=== PATIENT | female | born 1990 | race Caucasian/White ===

== ENCOUNTER 2019-06-20 15:30 | Outpatient (CLI) | payer MEDICAID, SELFPAY ==
--- NOTE | 2019-06-20 | US_ITS ---
WS: [id number] OBSTETRICAL ULTRASOUND COMPLETE HISTORY: SUPERVISION OF NORMAL FIRST COMPARISON: 04/11/2018 Single intrauterine gestation in breech presentation. Cervix is Closed and normal length. Cervical length is 3.7 cm. Normal amount of amniotic fluid surrounds the fetus. Placenta: Anterior, no previa or abruption. Placenta grade 1 Heart: 137 BPM. Four chambers are identified. Anatomy: Poorly visualized distal spine. Intracranial structures are normal. kidneys, stomach a nd urinary bladder are unremarkable. Abdominal wall, three-vessel cord and cord insertion site are no rmal. 4 extremities are present. profile: Unremarkable. Gender: Female. measurements: BPD = 4.7 cm = 20w1d HC = 17.3 cm = 19w6d AC = 15.7 cm = 20w6d FL = 3.2 cm = 20w0d EFW: 352 g., Measurements are internally concordant. AGA by ultrasound: 20 weeks 2 days ALEJANDRO by ultrasound: 11/05/2019 US/US OB >= 14 weeks fetus [id number] IMPRESSION: 1. Single intrauterine gestation of 20 weeks 2 days with an EDC of 11/05/2019. 2. Poorly visualized distal spine. Otherwise anatomy is negative.
== END 2019-06-20 15:31 | disposition home or self-care (01) ==
LOC: RADOUTREAD 15:35
PROVIDERS: Family Provider Family Medicine; Visit Provider Family Medicine
DX: O32.1XX0 Maternal care for breech presentation, not applicable or unspecified (principal); Z3A.20 20 weeks gestation of pregnancy

== ENCOUNTER 2019-07-30 09:55 | Outpatient (CLI) | payer MEDICAID, SELFPAY ==
--- NOTE | 2019-07-30 | US_ITS ---
WS: [id number] ULTRASOUND OB LIMITED TECHNIQUE: Limited ultrasound examination of the fetus. CLINICAL INFORMATION: SUPERVISION OF NORMAL IN MULTIGRAVIDA SECOND TRIME COMPARISON: June 20, 2019 FINDINGS: Single interuterine gestation. presentation is vertex Placental location is anterior. Placenta grade: 1 heart rate 153 BPM. Normal amniotic fluid volume Anatomy: Normal visualized spine BDP: 6.4 cm = 25w5d HC: 23.6 cm = 25w4d AC: 21.4 cm = 25w6d FEMUR LENGTH: 4.7 cm = 25w5d Estimated weight: 1 lb. 14 oz. EGA by ultrasound: 25 weeks 5 days ALEJANDRO by ultrasound: November 07, 2019 US/[place] [id number] IMPRESSION: 1. Single intrauterine gestation with vertex presentation. 2. Normal amniotic fluid volume. 3. Spine evaluated and appears normal today.
== END 2019-07-30 09:56 | disposition home or self-care (01) ==
LOC: RADOUTREAD 12:17
PROVIDERS: Family Provider Family Medicine; Visit Provider Family Medicine
DX: Z76.89 Persons encountering health services in other specified circumstances (principal)

== ENCOUNTER 2019-10-30 04:58 | Inpatient (IN) | payer MEDICAID, SELFPAY ==
[2019-10-30] VITALS (33 sets, daily range): BP systolic 87–128; BP diastolic 50–84; PULSE 63–110; RESP 15–18; TEMP 36.3–36.9; O2SAT 97–99; BMI 30.9
[2019-10-30] MEDS: lactated ringers 1,000 ML 999 ML IV ×2 (05:51→06:51)
[2019-10-30 05:56] LABS: Basophils % 0.3 %; Eosinophils % 0.1 %; Hemoglobin 9.3 g/dL (11.5-15.3); Lymphocytes # 1.6 10^3/uL (0.8-4.8); Mean Corpuscular Hemoglobin 28.4 pg (28.0-34.0); Mean Corpuscular Volume 91.5 fL (81-99); Mean Platelet Volume 11.4 fL (7.4-10.4); Monocytes # 0.7 10^3/uL (0.2-0.9); Monocytes % 5.7 %; Neutrophils # 9.3 10^3/uL (1.8-7.7); Neutrophils % 79.6 %; Nucleated Red Blood Cells % 0.2 %; Platelet Count 296 10^3/cmm (130-400); Red Blood Count 3.28 10^6/uL (4.1-5.3); Red Cell Distribution Width 15.1 % (12.1-15.1); White Blood Count 11.7 10^3/uL (4.0-10.0)
--- NOTE | 2019-10-30 06:40 | ANES.PREANE2 ---
Pre-Anesthetic Assessment Pre-Anesthetic Assessment: Height/Weight: Height 1.55 m Weight 74.389 kg Temp Resp 98.3 F 18 10/30/19 05:24 10/30/19 05:24 Proposed Procedure: Operation Date: 10/30/19 07:00 Proposed Procedures p Section Repeat With Tubal(Not Applicable) - Cecilio Hwang MD Was Beta Lia taken within 24 hours: N/A Last intake: Intake Last Liquid Date 10/29/19 Last Liquid Time 17:00 Last Solid Date 10/29/19 Last Solid Time 17:00 Social: Social History: Tobacco Packs per day: 1/2 Pack years: 6 Exam: Pre-Anes Outpt Exam: alert, oriented x 3, clear to auscultation bilaterally and regular rate & rhythm Airway: Submandibular: WNL Cervical ROM: WNL MP: 1 History/ROS: No significant history except as noted Pulmonary: Pulmonary: None reported CV/HEM: CV/HEM: None reported : : None reported Hepatic: Hepatic: None reported GI: Comments: heartburn with Metabolic: Metabolic: None reported Musc/skel: Musc/skel: None reported Neuropsych: Neuropsych: Anxiety and Depression Anesthetic Plan: ASA status: 2 Anesthesia: Regional (specify below) Risk of > 500 ml blood loss (7ml/kg in children): No Meds/Allergies Current Medications: Current Medications Generic Name Dose Route Start Last Admin Trade Name Freq PRN Reason Stop Dose Admin Lactated Ringer's 1,000 mls @ 999 m ls/hr 10/30/19 05:26 10/30/19 05:51 Lactated Ringers IV 999 mls/hr .Q1H1M PRN Administration ANESTHESIA [facility] Anesthesia Female Reproductive History: : 4 Data Anesthesia CBC & Chem 7: 10/30/19 05:45 Other Labs: Laboratory Results - last 48 hr 10/30/19 05:45 WBC 11.7 H RBC 3.28 L Hgb 9.3 L Hct 30.0 L MCV 91.5 MCH 28.4 MCHC 31.0 RDW 15.1 Plt Count 296 MPV 11.4 H Neut % (Auto) 79.6 Lymph % (Auto) 14.0 Shackelford % (Auto) 5.7 Eos % (Auto) 0.1 Baso % (Auto) 0.3 Neut # (Auto) 9.3 H Lymph # (Auto) 1.6 Shackelford # (Auto) 0.7 Eos # (Auto) 0.0 Baso # (Auto) 0.0 Nucleated RBC % (auto) 0.2 Nucleated RBCs # 0.0 Cardiac Studies: No Data to Display
[2019-10-30] MEDS: famotidine 20 mg/2 mL INJ IVP (06:49)
[2019-10-30] MEDS: citric acid-sodium citrate 30 mL UDC PO (06:49)
[2019-10-30] MEDS: metoclopramide 5 mg/mL SDV 2 mL 10 MG IVP (06:49)
--- NOTE | 2019-10-30 06:51 | PM.HP ---
Providers/Chief Complaint Admitting Physician: Cecilio Hwang MD History of Present Illness Valerie Wooten is a 29 year old female had an unremarkable . She has had a previous x2. She desires a repeat . We discussed the risks of a repeat including the risks of bleeding, infection, and damage to intra-abdominal organs. She also desires a tubal ligation. We discussed the risks and alternatives to tubal ligation. We also discussed the 1 200 chance of becoming again after a successful tubal ligation. She and her partner understand all these things and wished to proceed. Her labs were unremarkable. Her blood type is B+. Her group B strep status is negative. Her glucose screen was negative. The remainder of her labs were within normal limits. Review of Systems General: Reports: 10 or more systems reviewed and unremarkable except in HPI and below Const: Denies: fever(s) Card: Denies: chest pain or irregular heart rhythm Resp: Denies: dyspnea Skin/Breast: Reports: other (The patient has had some edema through the third trimester of her both in her abdomen as well as her legs.) Medications/Allergies Home Medications Medication Instructions Recorded Confirmed Last Taken Type [id number] fumarate-FA See Rx Instructions .ROUTE .COMPLEX 10/30/19 10/30/19 10/29/19 17:00 History [] fluoxetine See Rx Instructions .ROUTE .COMPLEX 10/30/19 10/30/19 10/29/19 17:00 History Allergies Allergy/AdvReac Type Severity Reaction Status Date / Time amoxicillin Allergy ALGY-Hives Verified 10/30/19 05:27 diphenhydramine Allergy ALGY-Hives Verified 10/30/19 05:27 [From Benadryl] [facility] Acute Female Reproductive History: : 4 Vitals/I&O/Wt Last Vital Signs Temp 98.3 F 10/30/19 05:24 Resp 18 10/30/19 05:24 Weight last 48 hrs Weight 164 lb Physical Exam Const: COMMON NORMALS: no acute distress and patient oriented x3 GENERAL APPEARANCE: cooperative, comfortable and well developed HENMT: COMMON NORMALS: normocephalic and moist oral mucous membranes HEAD & SCALP: normocephalic Chest: COMMONS NORMALS: normal inspection of the chest Resp: COMMON NORMALS: normal respiratory effort and clear to auscultation bilaterally AUSCULTATION: clear to auscultation bilaterally Cardio: COMMON NORMALS: regular rate, regular rhythm, No gallops present (Cardio), No murmurs present (Cardio) and No rub (Cardio) RATE: regular rate RHYTHM: regular rhythm Extremity: COMMON NORMALS: normal to inspection Neuro: COMMON NORMALS: patient oriented x3 and no focal motor deficits Skin: COMMON NORMALS: no rashes or lesions noted GENERAL SKIN EXAM: no rashes or lesions noted Data : 10/30/19 05:45 A&P Assessment and plan (1) 39 weeks gestation of : We will proceed with the and tubal ligation is scheduled. I anticipate a routine hospital stay. Because of the edema that she does have she does have a high risk of having drainage from her incision. She understands that. We will do our best to keep it dry. Status: Acute (2) Previous section: Status: Acute (3) Sterilization consult: Status: Acute Attestations Medical Necessity Statement*: Routine and post care. Coding Level of Care Code Acute Vertical Lathe Operator for Sueg Jerrica Diagnoses 39 weeks gestation of Z3A.39 Previous section Z98.891 Sterilization consult Z30.09
--- NOTE | 2019-10-30 08:18 | P.OP_ITS ---
Operative Report Date of procedure: October 30, 2019 Pre-op Diagnosis: 29-year-old 4 at 39 weeks presenting for repeat C- section and tubal Post-op diagnosis: same Procedure Done: Lower transverse section and tubal ligation Specimens removed/disposition: 1. Female with a weight of 5 pounds 8 ounces and Apgars of 8 and 9 2. Placenta with a three-vessel cord delivered intact 3. Bilateral fallopian tube segment with the right segment being tagged Pathology: other Pathology: Bilateral fallopian tube segments with the right segment being tagged Surgeon: Cecilio Hwang Anesthesia: Other (Spinal) Estimated blood loss (mL): 600 Complications: None Condition: stable Disposition: floor (OB) Brief History: See history and physical Procedure: The patient was brought back to the operating room where she was prepped and draped in usual sterile fashion. Anesthesia was found to be adequate. A lower transverse skin incision was then made with a #10 blade. I then dissected down to the underlying subcutaneous tissue until arriving at the prerectal fascia. The fascia was then nicked with the scalpel bilaterally. The fascial incisions were then carried laterally with Duque scissors. Attention was then turned to the superior aspect of the incision which was grasped with kochers and tented up away from the underlying rectus abdominis muscles. The muscles were then dissected away from the fascia manually, and later with Duque scissors. Attention was then turned to the inferior aspect of the incision, and the fascia was dissected away from the underlying muscle in similar fashion. The rectus abdominis muscles were then spread manually. The peritoneum was entered manually. Excellent visualization of the uterus was noted. A lower transverse uterine incision was then made with a #10 blade. Upon arriving at the intrauterine cavity, the uterine incision was then extended manually. The infant was noted to be in vertex position. The baby was delivered without difficulty. After delivery of the head, the mouth and nose were suctioned at the site of the incision. There was no meconium. There was no nuchal cord. The remainder of the body was then delivered and placed on the abdomen. The cord was cut and clamped. The baby was then handed to the waiting nurse. The placenta was removed intact. The uterus was externalized. The intrauterine cavity was cleansed of any remaining debris. The uterine wall was very thin, as result the uterine incision was reapproximated in 1 layer. The uterus was replaced into the abdomen. The peritoneum was then irrigated with warm saline. I reexamined the uterine incisi on and found it to be hemostatic. The rectus abdominis muscles were then reapproximated using 0 Vicryl in a running stitch. the fascia was then reapproximated using 0 Vicryl in running stitch. The skin was reapproximated using red. The subcutaneous tissue was then reapproximated with 0 Vicryl in a running stitch. The skin was reapproximated using 4-0 Vicryl in a running subcuticular stitch. Steri-Strips were placed. A sterile dressing was placed. All counts were correct x2. The mother was in stable condition. The baby was brought back to the nursery for further evaluation.
[2019-10-30] MEDS: nicotine 21 mg Patch 1 PATCH TRANSDERMA (09:20)
[2019-10-30] MEDS: morphine 4 mg/mL SDV 1 mL 5 MG IVP ×2 (09:30→12:06)
[2019-10-30 09:44] LABS: Amphetamines Screen Urine Negative (Negative); Barbiturates Screen Urine Negative (Negative); Benzodiazepines Screen Urine Negative (Negative); Cocaine Screen Urine Negative (Negative); Opiate Screen Urine Positive (Negative); PCP Screen Urine Negative (Negative); THC Screen Urine Positive (Negative)
[2019-10-30] MEDS: HYDROcodone-acetaminophen 5-325 mg Tablet PO ×2 (10:39→17:13)
[2019-10-30 10:49] LABS: Amphetamines Screen Urine Negative (Negative); Barbiturates Screen Urine Negative (Negative); Benzodiazepines Screen Urine Negative (Negative); Cocaine Screen Urine Negative (Negative); Opiate Screen Urine Negative (Negative); PCP Screen Urine Negative (Negative); THC Screen Urine Positive (Negative)
--- NOTE | 2019-10-30 11:07 | PC.NURSE ---
This nurse entered pt's room and stated we needed to have a discussion and stated to the mother she was positive for THC and this indicated a hotline call to be made. The mother became very quiet and the father of the baby stated I am leaving and I'm going to go get the other kids and I'm leaving the state. This nurse stated to the father that if he leaves the hospital he would not be able to return due to the COVID restrictions. The pt stated Yeah, and I'm fucking stuck here. This nurse stated it is policy to hotline the mother if she is positive for any form of drugs. The father stated This is fucking bull shit. She was so sick she couldn't keep anything down so she smoked a couple of joints so she could eat. This nurse stated that due to the hospital's policy, the mother was positive for THC and this indicated a hotline call and this nurse a mandated commercial litigation attorney. The mother became very tearful and stated I don't even smoke weed anymore. The father then stated This is bull shit. Are they going to try and take our kids? This nurse stated she would be asked if the parents seem suitable and if they have a good home and this nurse stated nothing has been determined unfit at this time. The father then stated Will we get to take our daughter home with us? This nurse stated at this time nothing has been determined and that this nurse would not give false hope or make any assumptions as to what DFS would do. The father stated he was not mad at this nurse. This nurse stated again that she is a mandated commercial litigation attorney. The father stated This is what I said to my mandating reporting and held up his middle finger. This nurse stated the hotline call would be made, DFS would come and talk to them and the decision on what is to be done will go from there.
[2019-10-30] MEDS: fentaNYL 50 mcg/mL INJ 2mL IV ×2 (13:13→15:53)
[2019-10-30] MEDS: dextrose 5%-lactated ringers 1,000 ML 125 ML IV (13:58)
[2019-10-30] MEDS: ketorolac 30 mg/mL INJ IVP ×2 (14:00→21:04)
[2019-10-30] MEDS: sodium chloride 0.9% 1,000 ML 999 ML IV (15:53)
[2019-10-30] MEDS: docusate sodium 100 mg Capsule PO (17:13)
[2019-10-30] MEDS: ferrous sulfate EC 325 mg Tablet PO (17:14)
[2019-10-30 18:11] LABS: Hematocrit 29.2 % (37.0-47.0); Hemoglobin 8.7 g/dL (11.5-15.3); Mean Corpuscular HGB Conc 29.8 g/dL (30.0-36.0); Mean Corpuscular Hemoglobin 28.1 pg (28.0-34.0); Mean Corpuscular Volume 94.2 fL (81-99); Mean Platelet Volume 11.6 fL (7.4-10.4); Platelet Count 270 10^3/cmm (130-400); Red Cell Distribution Width 15.5 % (12.1-15.1); White Blood Count 9.9 10^3/uL (4.0-10.0)
[2019-10-30] MEDS: sodium chloride 0.9% 500 ML 999 ML IV (21:02)
[2019-10-30] MEDS: fentaNYL 50 mcg/mL INJ 2mL IVP (21:42)
[2019-10-31] VITALS (10 sets, daily range): BP systolic 95–110; BP diastolic 56–68; PULSE 69–84; RESP 16–18; TEMP 36.7–36.9; O2SAT 95–98
[2019-10-31] MEDS: oxyCODONE-APAP 5-325 mg Tablet PO ×4 (00:09→22:47)
[2019-10-31] MEDS: sodium chloride 0.9% 500 ML 999 ML IV (00:23)
[2019-10-31] MEDS: dextrose 5%-lactated ringers 1,000 ML 125 ML IV (02:00)
[2019-10-31] MEDS: ketorolac 30 mg/mL INJ IVP (02:27)
[2019-10-31 03:59] LABS: Hematocrit 25.6 % (37.0-47.0); Hemoglobin 8.1 g/dL (11.5-15.3); Mean Corpuscular HGB Conc 31.6 g/dL (30.0-36.0); Mean Corpuscular Hemoglobin 29.2 pg (28.0-34.0); Mean Corpuscular Volume 92.4 fL (81-99); Platelet Count 275 10^3/cmm (130-400); Red Blood Count 2.77 10^6/uL (4.1-5.3); Red Cell Distribution Width 15.3 % (12.1-15.1); White Blood Count 9.9 10^3/uL (4.0-10.0)
--- NOTE | 2019-10-31 07:44 | PM.OBGYPN ---
LATHE SCALPER OPERATOR Subjective Subjective: Interval history: The patient had reduced urine output yesterday afternoon. Over several hours, she was given 2 L of normal saline bolus. Initially, her pain was difficult to control, but she is doing better today. Labor: Monitor Mode: External Contraction Pattern: Occasional Vitals/I&O/Wt Last Vital Signs Temp 97.9 F 10/30/19 18:33 Pulse 75 10/31/19 02:00 Resp 18 10/31/19 06:48 BP 96/57 10/31/19 02:00 Pulse Ox 95 10/31/19 02:00 10/30/19 10/31/19 10/31/19 22:59 06:59 14:59 Intake Total 2000.000 / 4050.000 Output Total 80 / 1380 1065 / 2445 Balance 1920.000 / 2670.000 -1065 / 1605.000 Weight last 48 hrs Weight 164 lb Physical Exam Narrative: EXAM NARRATIVE: She is in no acute distress Lungs are clear auscultation bilaterally Her heart has a regular rate and rhythm Her fundus is below the umbilicus and firm Her dressing is clean, dry and intact She has 2-3+ edema extending up her thighs to her lower abdomen. This is unchanged to mildly improved since prior to her . Urinary Catheter Management^: Ortiz Latex: Cath Placed During This Visit: yes Reason for Continuing Indwelling Catheter: Accurate Measurement of Urinary Output in Critically Ill Patients Urinary Catheter Date of Insertion: 10/30/19 Urinary Catheter Time of Insertion: 07:13 Data : 10/31/19 03:52 A&P Assessment and plan (1) Sterilization consult: Status: Acute (2) Previous section: Status: Acute (3) 39 weeks gestation of : Status: Acute (4) Bilateral lower extremity edema: Status: Acute Attestations Medical Necessity Statement*: Anticipate the patient will be discharged tomorrow as part of a routine hospital stay Coding Level of Care Code Acute Front Loader Residential Driver for Jeffrey Becerril Diagnoses Sterilization consult Z30.09 Previous section Z98.891 39 weeks gestation of Z3A.39 Bilateral lower extremity edema R60.0
[2019-10-31] MEDS: nicotine 21 mg Patch 1 PATCH TRANSDERMA (09:55)
[2019-10-31] MEDS: ferrous sulfate EC 325 mg Tablet PO ×2 (09:55→19:19)
[2019-10-31] MEDS: docusate sodium 100 mg Capsule PO ×2 (09:55→19:19)
[2019-10-31] MEDS: prenatal vitamin Capsule 1 CAP PO (09:55)
[2019-11-01 01:27] VITALS: BP 110/63; PULSE 77; RESP 17; TEMP 36.8; O2SAT 97
[2019-11-01 05:30] VITALS: BP 108/71; PULSE 73; RESP 16; TEMP 36.4
[2019-11-01 05:57] VITALS: RESP 18
[2019-11-01] MEDS: oxyCODONE-APAP 5-325 mg Tablet PO (05:57)
--- NOTE | 2019-11-01 07:29 | P.DS_ITS ---
Discharge Providers BIOMETRIC TECHNICIAN Date of Admission: 10/30/19 04:58 Date of Discharge: 11/01/19 Attending Provider at Admission: Cecilio Hwang MD Attending Provider at Discharge: Cecilio Hwang MD Diagnoses at Discharge Discharge Diagnosis (1) Sterilization consult: Status: Acute (2) Previous section: Status: Acute (3) 39 weeks gestation of : Status: Acute (4) Bilateral lower extremity edema: Status: Acute Hospital Course Hospital Course: The patient presented to the hospital for a repeat section and bilateral tubal ligation. The surgery went without difficulty. The patient's course was complicated by having a reduced urine output for several hours. She received a total of 2 L of normal saline as a bolus. She ultimately began to diurese and had multiple hours of over 300 mL of output shortly thereafter. She continued to urinate properly the rest of her hospital stay. The patient does have edema in her lower extremities into her abdomen and has had over the last several weeks of her . Her bleeding was within normal limits. Her pain was well controlled. She initially was breast-feeding, but shifted to bottlefeeding during her hospital stay. Information Peripartum Data: Delivery Method: Section Physical Exam Narrative: EXAM NARRATIVE: She is in no acute distress Lungs are clear auscultation bilaterally Her heart has a regular rate and rhythm Her fundus is below the umbilicus and firm Her dressing is clean, dry and intact Her extremities have trace edema Urinary Catheter Management^: Ortiz Latex: Cath Placed During This Visit: yes Reason for Continuing Indwelling Catheter: Accurate Measurement of Urinary Output in Critically Ill Patients Urinary Catheter Date of Insertion: 10/30/19 Urinary Catheter Time of Insertion: 07:13 Discharge Data Data Completed and Pending: Completed Studies During Hospitalization Category Date Time Status Pathology: Surgic al [PTH] Routine Pth 10/30/19 09:38 Completed Vitals: Last Vital Signs Temp 97.5 F L 11/01/19 05:30 Pulse 73 11/01/19 05:30 Resp 18 11/01/19 05:57 BP 108/71 11/01/19 05:30 Pulse Ox 97 11/01/19 01:27 Discharge Plan Discharge Patient Disposition: Home, Self-Care Condition: Stable Prescriptions: New ibuprofen 800 mg Tablet 800 mg PO Q8H Qty: 45 RF: 0 oxycodone-acetaminophen 5-325 mg Tablet 1 - 2 tab PO Q6H PRN (Reason: Moderate To Severe Pain) 10 Days Qty: 30 RF: 0 Continued fluoxetine 40 mg capsule See Rx Instructions .ROUTE .COMPLEX RF: 0 28-800 mg-mcg Tablet See Rx Instructions .ROUTE .COMPLEX RF: 0 Discharge Orders: Discharge Order (Routine); Ordered 11/01/19 Ordered By: Cecilio Hwang Referrals: Cecilio Hwang MD [Physician] - 4-7 days (Also set up 6 week check) Discharge Diet: Advance as tolerated Discharge Activity: Limit activity as instructed Patient Instructions: Vitamins (By mouth), Section (DC), OB Discharge Report, OB Food/Drug Interaction Guide, OB Proud Parent Packet Discharge Attestations BIOMETRIC TECHNICIAN Time Spent in Discharge Care*: less than 30 min Coding Level of Care Code Acute Classification Control Clerk for Chg Fwd Diagnoses Sterilization consult Z30.09 Previous section Z98.891 39 weeks gestation of Z3A.39 Bilateral lower extremity edema R60.0
[2019-11-01 08:00] VITALS: BP 109/52; PULSE 86; RESP 16; TEMP 37.1; O2SAT 97
== END 2019-11-01 09:45 | disposition home or self-care (01) | DRG 784 ==
PROVIDERS: Admitting Provider Family Medicine; Family Provider Family Medicine; Visit Provider Family Medicine
PROC: 10D00Z1 Extraction of Products of Conception, Low, Open Approach (ICD-10-PCS; CPT 59514; principal; 2019-10-30 07:00)
DX: O34.211 Maternal care for low transverse scar from previous cesarean delivery (principal); O99.324 Drug use complicating childbirth; N85.8 Other specified noninflammatory disorders of uterus; Z3A.39 39 weeks gestation of pregnancy; Z37.0 Single live birth; F12.929 Cannabis use, unspecified with intoxication, unspecified; Z30.2 Encounter for sterilization
CPT/HCPCS: 12345; 36415; 51702; 58611; 59409; 80306; 85025; 85027; 86850; 86900; 88302; 96374; 96375; J0690; J1885; J2001; J2270; J2274; J2370; J2405; J2590; J2704; J2765; J3010; J3490; J7030; J7040

== ENCOUNTER 2021-02-11 04:26 | Emergency (ER) | payer MEDICAID, SELFPAY ==
[2021-02-11 04:30] VITALS: BP 120/86; PULSE 117; RESP 18; TEMP 36.2; O2SAT 96; BMI 24.5
--- NOTE | 2021-02-11 04:40 | ED_ITS ---
HPI - Nausea/Vomiting/Diarrhea General: Chief complaint: Nausea/Vomiting/Diarrhea Stated complaint: NVD Time Seen by Provider: 02/11/21 04:36 Source: patient Mode of arrival: ambulatory Limitations: no limitations History of Present Illness: HPI Narrative: 30-year-old female states of the last 4 to 5 days she been having body aches low-grade fevers along with nausea and vomiting diarrhea. States she has pain all over her body. States she had some dyspnea as well. Denies any sick contacts. Denies any worsening improving factors. States she is had difficulty keeping down any fluids. Associated nausea: Yes Associated symtoms: Reports nausea; Denies chest pain, dysuria or headache(s) Review of Systems Const: Reports: fever(s), chills and body aches Eyes: Denies: blurry vision or eye discomfort ENMT: Denies: throat pain or dental pain Card: Denies: chest pain Resp: Denies: dyspnea GI: Reports: nausea, vomiting and diarrhea : Denies: dysuria Musc: Denies: neck pain or back pain Skin/Breast: Denies: rash Neuro: Denies: headache(s) Psych: Denies: depression Gabriel/Lymph: Denies: easy bruising All/Imm: Denies: urticaria Physical Exam Const: COMMON NORMALS: no acute distress, patient oriented x3 and healthy appearing HENMT: COMMON NORMALS: normocephalic and atraumatic HEAD & SCALP: normocephalic and atraumatic Eye: COMMON NORMALS: Equal, round and reactive pupils present and EOMs intact bilaterally PUPIL: Yes Equal, round and reactive pupils present Neck/C-Spine: COMMON NORMALS: full ROM and supple Chest: COMMONS NORMALS: normal inspection of the chest and normal palpation of entire chest wall Resp: COMMON NORMALS: normal respiratory effort, No retractions, No use of accessory muscles and clear to auscultation bilaterally AUSCULTATION: clear to auscultation bilaterally Cardio: COMMON NORMALS: regular rate, regular rhythm and No murmurs present (Cardio) RATE: regular rate RHYTHM: regular rhythm GI: COMMON NORMALS: Normal to inspection, nondistended, normoactive bowel sounds present, Soft to palpation, non-tender and no masses PALPATION: Yes Soft to palpation Extremity: COMMON NORMALS: normal to inspection and full ROM Neuro: COMMON NORMALS: patient oriented x3, moves all extremities and no focal motor deficits Psych: COMMON NORMALS: mental status grossly normal, Normal thought process present and cooperative THOUGHT PROCESS: Normal thought process present Skin: COMMON NORMALS: no rashes or lesions noted and no wounds GENERAL SKIN EXAM: no rashes or lesions noted Course Vital Signs: Vital signs: Vital Signs Temperature 97.1 F L 02/11/21 04:30 Pulse Rate 90 02/11/21 06:03 Respiratory Rate 16 02/11/21 06:03 Blood Pressure 96/55 02/11/21 06:03 Pulse Oximetry 98 02/11/21 06:03 MDM - Nausea/Vomiting/Diarrhea MDM Narrative: Medical decision making narrative: Patient presents with vomiting diarrhea is likely a gastroenteritis. Initial repeat abdominal exams here are benign with no tenderness no signs of acute abdomen. Patient's Covid here is negative. Her blood work is negative as well. She feels much improved after IV fluids. Will prescribe her Zofran she is stable for discharge and is to follow-up with PCP and return if worsening. Lab Data: Labs: Lab Results 02/11/21 02/11/21 02/11/21 Range/Units 04:50 04:50 04:50 WBC (4.0-10.0) 10^3/ uL RBC (4.1-5.3) 10^6/u L Hgb (11.5-15.3) g/dL Hct (37.0-47.0) % MCV (81-99) fl MCH (28.0-34.0) pg MCHC (30.0-36.0) g/dL RDW (12.1-15.1) % Plt Count (130-400) 10^3/c mm MPV (7.4-10.4) fL Neut % (Auto) % Lymph % (Auto) % Toombs % (Auto) % Eos % (Auto) % Baso % (Auto) % Neut # (Auto) (1.8-7.7) 10^3/u L Lymph # (Auto) (0.8-4.8) 10^3/u L Toombs # (Auto) (0.2-0.9) 10^3/u L Eos # (Auto) (0.0-0.8) 10^3/u L Baso # (Auto) (0.0-0.1) 10^3/u L Nucleated RBC % (a uto) % Nucleated RBCs # /100WBC Sodium (136-145) mmol/L Potassium (3.5-5.1) mmol/L Chloride (98-107) mmol/L Carbon Dioxide (22-29) mmol/L Anion Gap (5-19) BUN (6-20) mg/dL Creatinine (0.5-0.9) mg/dL GFR Calculation (90-130) mL/min Glucose (65-115) mg/dL Calculated Osmolal ity (285-295) mOsm/k g Calcium (8.5-10.5) mg/dL Total Bilirubin (0.15-1.2) mg/dL AST (0-32) U/L ALT (0-33) U/L Alkaline Phosphata se (35-105) IU/L Total Protein (6.6-8.7) g/dL Albumin (3.5-5.2) g/dL Globulin (1.3-4.6) g/dL Lipase (13-60) U/L HCG, Qual Negative (Negative) Urine Color Yellow (Yellow) Urine Appearance Sl hazy (CLEAR) Urine pH 5 (5-7) Ur Specific Gravit y 1.025 (1.005-1.030) Urine Protein Neg (Negative) Urine Glucose (UA) Norm (Normal) Urine Ketones 3+ H (Negative) Urine Blood Neg (Negative) Urine Nitrate Negative (Negative) Urine Bilirubin 1+ H (Negative) Urine Urobilinogen 1 H (Negative) mg/dL Ur Leukocyte Hortencia ase Negative (Negative) SARS-CoV-2 Ag (Rap id) Negative (Negative) 02/11/21 02/11/21 Range/Units 04:52 04:52 WBC 8.3 (4.0-10.0) 10^3/ uL RBC 5.12 (4.1-5.3) 10^6/u L Hgb 15.6 H (11.5-15.3) g/dL Hct 46.3 (37.0-47.0) % MCV 90.4 (81-99) fl MCH 30.5 (28.0-34.0) pg MCHC 33.7 (30.0-36.0) g/dL RDW 13.2 (12.1-15.1) % Plt Count 328 (130-400) 10^3/c mm MPV 9.0 (7.4-10.4) fL Neut % (Auto) 65.2 % Lymph % (Auto) 19.7 % Toombs % (Auto) 9.9 % Eos % (Auto) 4.8 % Baso % (Auto) 0.2 % Neut # (Auto) 5.40 (1.8-7.7) 10^3/u L Lymph # (Auto) 1.6 (0.8-4.8) 10^3/u L Toombs # (Auto) 0.8 (0.2-0.9) 10^3/u L Eos # (Auto) 0.4 (0.0-0.8) 10^3/u L Baso # (Auto) 0.0 (0.0-0.1) 10^3/u L Nucleated RBC % (a uto) 0 % Nucleated RBCs # 0.0 /100WBC Sodium 135 L (136-145) mmol/L Potassium 3.4 L (3.5-5.1) mmol/L Chloride 96 L (98-107) mmol/L Carbon Dioxide 22 (22-29) mmol/L Anion Gap 20.4 H (5-19) BUN 13 (6-20) mg/dL Creatinine 0.7 (0.5-0.9) mg/dL GFR Calculation 99.6 (90-130) mL/min Glucose 83 (65-115) mg/dL Calculated Osmolal ity 279 L (285-295) mOsm/k g Calcium 7.8 L (8.5-10.5) mg/dL Total Bilirubin 0.2 (0.15-1.2) mg/dL AST 32 (0-32) U/L ALT 23 (0-33) U/L Alkaline Phosphata se 56 (35-105) IU/L Total Protein 6.6 (6.6-8.7) g/dL Albumin 3.9 (3.5-5.2) g/dL Globulin 2.7 (1.3-4.6) g/dL Lipase 45 (13-60) U/L HCG, Qual (Negative) Urine Color (Yellow) Urine Appearance (CLEAR) Urine pH (5-7) Ur Specific Gravit y (1.005-1.030) Urine Protein (Negative) Urine Glucose (UA) (Normal) Urine Ketones (Negative) Urine Blood (Negative) Urine Nitrate (Negative) Urine Bilirubin (Negative) Urine Urobilinogen (Negative) mg/dL Ur Leukocyte Hortencia ase (Negative) SARS-CoV-2 Ag (Rap id) (Negative) Discharge Plan Discharge Patient Disposition: Home Clinical Impression: Vomiting Qualifiers: Vomiting type: unspecified Vomiting Intractability: non-intractable Nausea presence: with nausea Qualified Code(s): R11.2 - Nausea with vomiting, unspecified Diarrhea Qualifiers: Diarrhea type: unspecified type Qualified Code(s): R19.7 - Diarrhea, unspecified Condition: Stable Prescriptions: New ondansetron 4 mg tablet,disintegrating 4 mg PO Q6H PRN (Reason: nausea and vomiting) Qty: 14 RF: 0 No Action fluoxetine 40 mg capsule See Rx Instructions .ROUTE .COMPLEX RF: 0 28-800 mg-mcg Tablet See Rx Instructions .ROUTE .COMPLEX RF: 0 ibuprofen 800 mg Tablet 800 mg PO Q8H Qty: 45 RF: 0 Discharge Orders: Discharge ED (Routine); Ordered 02/11/21 Ordered By: Abhishek Forrest Referrals: Cecilio Hwang MD [Primary Care Provider] - 1-3 days Discharge Diet: Advance as tolerated Discharge Activity: Resume usual activity Patient Instructions: Acute Nausea and Vomiting (ED), Acute Diarrhea (ED) Coding Level of Care Code ED Organization Development Consultant for Sueg Fwd Exam Comprehensive
[2021-02-11] MEDS: ondansetron 2 mg/ML SDV 2 mL 4 MG IVP (04:51)
[2021-02-11] MEDS: sodium chloride 0.9% 1,000 ML 999 ML IV ×2 (04:51→04:52)
[2021-02-11 04:52] VITALS: RESP 16
[2021-02-11] MEDS: morphine 4 mg/mL SDV 1 mL IVP (04:52)
[2021-02-11 04:57] LABS: Basophils % 0.2 %; Eosinophils # 0.4 10^3/uL (0.0-0.8); Eosinophils % 4.8 %; Hematocrit 46.3 % (37.0-47.0); Hemoglobin 15.6 g/dL (11.5-15.3); Lymphocytes # 1.6 10^3/uL (0.8-4.8); Lymphocytes % 19.7 %; Mean Corpuscular HGB Conc 33.7 g/dL (30.0-36.0); Mean Corpuscular Hemoglobin 30.5 pg (28.0-34.0); Mean Corpuscular Volume 90.4 fl (81-99); Monocytes # 0.8 10^3/uL (0.2-0.9); Monocytes % 9.9 %; Neutrophils % 65.2 %; Nucleated Red Blood Cells % 0 %; Platelet Count 328 10^3/cmm (130-400); Red Blood Count 5.12 10^6/uL (4.1-5.3); Red Cell Distribution Width 13.2 % (12.1-15.1); White Blood Count 8.3 10^3/uL (4.0-10.0)
[2021-02-11 05:03] LABS: Add Urine Microscopic? NO; Charge for UA Resulting for Rev
[2021-02-11 05:05] LABS: HCG Qualitative Urine. Negative (Negative)
[2021-02-11 05:06] LABS: Bilirubin Urine 1+ (Negative); Blood Urine Neg (Negative); Glucose Urine UA Norm (Normal); Ketones Urine 3+ (Negative); Leukocyte Esterase Urine Negative (Negative); Nitrate Urine Negative (Negative); Protein Urine Neg (Negative); Specific Gravity, Urine 1.025 (1.005-1.030); Urine Appearance SL Hazy (CLEAR); Urine Color Yellow (Yellow); Urobilinogen Urine 1 mg/dL (Negative); pH Urine 5 (5-7)
[2021-02-11 05:15] VITALS: PULSE 94; O2SAT 98
[2021-02-11 05:17] LABS: Alanine Aminotransferase 23 U/L (0-33); Albumin Level 3.9 g/dL (3.5-5.2); Alkaline Phosphatase 56 IU/L (35-105); Anion Gap 20.4 (5-19); Aspartate Amino Transferase 32 U/L (0-32); Blood Urea Nitrogen 13 mg/dL (6-20); Calcium 7.8 mg/dL (8.5-10.5); Carbon Dioxide 22 mmol/L (22-29); Chloride 96 mmol/L (98-107); Creatinine Clr Calc Pharmacy 98.7262; Globulin 2.7 g/dL (1.3-4.6); Glomerular Filtration Rate 99.6 mL/min (90-130); Glucose 83 mg/dL (65-115); Lipase 45 U/L (13-60); Osmolality Calculated 279 mOsm/kg (285-295); Potassium 3.4 mmol/L (3.5-5.1); Sodium 135 mmol/L (136-145); Total Bilirubin 0.2 mg/dL (0.15-1.2); Total Protein 6.6 g/dL (6.6-8.7)
[2021-02-11 05:26] VITALS: BP 99/58; PULSE 95; RESP 16; O2SAT 98
[2021-02-11 05:39] LABS: SARS Covid-2 Antigen Negative (Negative)
[2021-02-11 06:03] VITALS: BP 96/55; PULSE 90; RESP 16; O2SAT 98
== END 2021-02-11 06:04 | disposition home or self-care (01) ==
PROVIDERS: Emergency Provider Emergency Medicine; PCP Family Medicine
DX: R11.2 Nausea with vomiting, unspecified (principal); R19.7 Diarrhea, unspecified; Z20.822 Contact with and (suspected) exposure to COVID-19
CPT/HCPCS: 80053; 81003; 81025; 83690; 85025; 87426; 96361; 96374; 96375; 99284; J2270; J2405; J7030

== ENCOUNTER 2024-03-30 05:12 | Emergency (ER) | payer MEDICAID, SELFPAY ==
[2024-03-30 05:19] VITALS: BP 102/76; PULSE 75; RESP 20; TEMP 36.6; O2SAT 100; BMI 25.4
[2024-03-30 05:24] VITALS: BP 102/76; PULSE 80; RESP 16; O2SAT 100
[2024-03-30] MEDS: prochlorperazine 10 mg/2 mL Inj 5 MG IVP (05:50)
[2024-03-30 05:53] VITALS: BP 112/69; PULSE 70; RESP 16; O2SAT 100
[2024-03-30 06:12] VITALS: BP 112/69; PULSE 78; RESP 16; O2SAT 100
--- NOTE | 2024-03-30 19:12 | ED_ITS ---
HPI - Headache General: Chief Complaint: Headache Stated Complaint: migraine, n/v Time Seen by Provider: 03/30/24 05:28 History of Present Illness: This patient is a 33-year-old white female who presents to the emergency department stating that she developed a migraine with vomiting 8 hours ago. No fever. She has a history of migraines and states this does feel like a migraine to her about 1 or more significant migraines. Related Data Home Medications Medication Instructions Recorded Confirmed fluoxetine 40 mg capsule See Rx Instructions .Route .COMPLEX 10/30/19 10/30/19 vit no.133-ferrous See Rx Instructions .Route .COMPLEX 10/30/19 10/30/19 fumarate 28 mg-folic acid 800 mcg tablet () Previous Rx's Medication Instructions Recorded ibuprofen 800 mg tablet 800 mg PO Q8H #45 tabs 11/01/19 ondansetron 4 mg disintegrating 4 mg PO Q6H PRN nausea and 02/11/21 tablet vomiting #14 tabs prochlorperazine maleate 10 mg 10 mg PO Q8H PRN nausea and 03/30/24 tablet (Compazine) vomiting #10 tabs Allergies Allergy/AdvReac Type Severity Reaction Status Date / Time amoxicillin Allergy ALGY-Hives Verified 02/06/23 22:41 diphenhydramine Allergy ALGY-Hives Verified 02/06/23 22:41 [From Harish] Review of Systems General: Reports: 10 or more systems reviewed and unremarkable except in HPI and below Neuro: Reports: headache(s) Physical Exam Const: COMMON NORMALS: patient oriented x3 and no limitations GENERAL APPEARANCE: cooperative HENMT: COMMON NORMALS: normocephalic, atraumatic, Normal nasal mucous membranes and turbinates present, moist oral mucous membranes and oropharynx normal HEAD & SCALP: normal to inspection, normocephalic and atraumatic FACE & SINUS: normal facial exam NOSE: Normal nasal mucous membranes and turbinates present Eye: COMMON NORMALS: Equal, round and reactive pupils present, EOMs intact bilaterally and conjunctivae normal GENERAL EYE: appearance normal, both eyes and all related structures CONJUNCTIVA: Yes conjunctivae normal PUPIL: Yes Equal, round and reactive pupils present Neck/C-Spine: COMMON NORMALS: supple and no JVD Chest: COMMONS NORMALS: normal inspection of the chest Resp: COMMON NORMALS: normal respiratory effort and clear to auscultation bilaterally AUSCULTATION: clear to auscultation bilaterally Cardio: COMMON NORMALS: no JVD, regular rate, regular rhythm, No gallops present (Cardio), No murmurs present (Cardio) and No rub (Cardio) RATE: regular rate RHYTHM: regular rhythm GI: COMMON NORMALS: Normal to inspection, nondistended, normoactive bowel sounds present, Soft to palpation and non-tender AUSCULTATION: Yes normoactive bowel sounds PALPATION: Yes Soft to palpation : COMMON NORMALS: Yes no CVA tenderness BLADDER/KIDNEY EXAM: Yes no CVA tenderness Back/Pelvis: COMMON NORMALS: no CVA tenderness and thoracic and lumbar spine normal to inspection Extremity: COMMON NORMALS: normal to inspection Neuro: COMMON NORMALS: patient oriented x3 and CN's II-XII intact bilaterally Psych: COMMON NORMALS: mental status grossly normal, Normal thought process present and cooperative THOUGHT PROCESS: Normal thought process present Skin: COMMON NORMALS: no rashes or lesions noted, turgor normal and no jaundice GENERAL SKIN EXAM: no rashes or lesions noted and turgor normal Course Vital Signs: Vital signs: Vital Signs Temperature 98 F 03/30/24 05:19 Pulse Rate 78 03/30/24 06:12 Respiratory Rate 16 03/30/24 06:12 Blood Pressure 112/69 03/30/24 06:12 Pulse Oximetry 100 03/30/24 06:12 Oxygen Delivery Me thod Room Air 03/30/24 05:53 MDM - Headache Medical Decision Making Patient was given 5 mg of Compazine IV. She was discharged in stable condition with a prescription for Compazine. Recommended she follow-up with her primary care physician as needed. No radiology studies performed this visit Discharge Plan Discharge Patient Disposition: Home Clinical Impression: Headache Condition: Stable Prescriptions: New prochlorperazine maleate [Compazine] 10 mg tablet 10 mg PO Q8H PRN (Reason: nausea and vomiting) Qty: 10 0RF No Action ondansetron 4 mg tablet,disintegrating 4 mg PO Q6H PRN (Reason: nausea and vomiting) Qty: 14 0RF fluoxetine 40 mg capsule See Rx Instructions .ROUTE .COMPLEX Rx Instructions: daily 28-800 mg-mcg Tablet See Rx Instructions .ROUTE .COMPLEX Rx Instructions: daily ibuprofen 800 mg Tablet 800 mg PO Q8H Qty: 45 0RF Discharge Orders: Discharge ED (Routine); Ordered 03/30/24 Ordered By: Justin Pham Referrals: Cecilio Hwang MD [Primary Care Provider] - Patient Instructions: Acute Headache (DC), Pain Management Coding Level of Care Code ED Manifest/Order Organizer Print Orders for Chg Jerrica
== END 2024-03-30 06:13 | disposition home or self-care (01) ==
PROVIDERS: Emergency Provider Emergency Medicine; PCP Family Medicine
DX: R51.9 Headache, unspecified (principal)
CPT/HCPCS: 96374; 99284; J0780

== ENCOUNTER 2024-09-02 16:54 | Emergency (ER) | payer SELFPAY ==
[2024-09-02 16:57] VITALS: BP 116/79; PULSE 81; TEMP 36.2; O2SAT 100; BMI 23.8
--- NOTE | 2024-09-02 17:27 | W.ED.DENTAL ---
HPI - Dental/Oral General: Chief complaint: Dental/Oral Stated complaint: tooth extraction problems Time Seen by Provider: 09/02/24 17:12 Source: patient Mode of arrival: ambulatory Limitations: no limitations History of Present Illness: 33-year-old female states she had tooth extracted last week and left upper molar states she started having pain today at the site. States pain sharp in nature rates it a 8 out of 10 denies any fever denies any vomiting or diarrhea. Denies any worse improved factors Associated symptoms: Denies fever(s) Related Data Home Medications ?Medication ?Instructions ?Recorded ?Confirmed fluoxetine 40 mg capsule See Rx Instructions .Route .COMPLEX 10/30/19 10/30/19 vit no.133-ferrous See Rx Instructions .Route .COMPLEX 10/30/19 10/30/19 fumarate 28 mg-folic acid 800 mcg tablet () Previous Rx's ?Medication ?Instructions ?Recorded ibuprofen 800 mg tablet 800 mg PO Q8H #45 tabs 11/01/19 ondansetron 4 mg disintegrating 4 mg PO Q6H PRN nausea and 02/11/21 tablet vomiting #14 tabs prochlorperazine maleate 10 mg 10 mg PO Q8H PRN nausea and 03/30/24 tablet (Compazine) vomiting #10 tabs cephalexin 500 mg capsule 500 mg PO TID 7 days #21 caps 09/02/24 hydrocodone 5 mg-acetaminophen 325 1 tab PO Q6H PRN pain #8 tabs 09/02/24 mg tablet naproxen 500 mg tablet (Naprosyn) 500 mg PO BID PRN pain #20 tabs 09/02/24 ondansetron 4 mg disintegrating 4 mg PO Q6H PRN nausea and 09/02/24 tablet vomiting #14 tabs Allergies Allergy/AdvReac Type Severity Reaction Status Date / Time amoxicillin Allergy ALGY-Hives Verified 09/02/24 17:03 diphenhydramine (From Allergy ALGY-Hives Verified 09/02/24 17:03 Benadryl) Review of Systems Const: Denies: fever(s), chills, body aches or change in appetite ENMT: Reports: dental pain; Denies: throat pain Card: Denies: chest pain Resp: Denies: dyspnea GI: Denies: abdominal pain, nausea, vomiting or diarrhea Musc: Denies: neck pain or back pain Skin/Breast: Denies: rash Neuro: Denies: headache(s) Physical Exam Const: COMMON NORMALS: no acute distress, patient oriented x3 and healthy appearing HENMT: COMMON NORMALS: normocephalic and atraumatic HEAD & SCALP: normocephalic and atraumatic Eye: COMMON NORMALS: conjunctivae normal CONJUNCTIVA: Yes conjunctivae normal OTHER: Tenderness over extraction site left upper molar no abscess no trismus Neck/C-Spine: COMMON NORMALS: full ROM and supple Chest: COMMONS NORMALS: normal inspection of the chest Resp: COMMON NORMALS: normal respiratory effort Cardio: COMMON NORMALS: regular rate, regular rhythm and No murmurs present (Cardio) RATE: regular rate RHYTHM: regular rhythm Extremity: COMMON NORMALS: normal to inspection and full ROM Neuro: COMMON NORMALS: patient oriented x3, moves all extremities and no focal motor deficits Psych: COMMON NORMALS: mental status grossly normal, Normal thought process present and cooperative THOUGHT PROCESS: Normal thought process present Skin: COMMON NORMALS: no rashes or lesions noted and no wounds GENERAL SKIN EXAM: no rashes or lesions noted Course Vital Signs: Vital signs: Vital Signs Temperature 97.2 F L 09/02/24 16:57 Pulse Rate 81 09/02/24 16:57 Blood Pressure 116/79 09/02/24 16:57 Pulse Oximetry 100 09/02/24 16:57 Oxygen Delivery Me thod Room Air 09/02/24 16:57 MDM - Dental/Oral Medical Decision Making Patient presents here with dental pain no signs of abscess or trismus we will place her on antibiotics along with pain meds she is to follow-up with a dentist return if worsening Medical Records I reviewed the patient's medical records. No radiology studies performed this visit Discharge Plan Discharge Patient Disposition: Home Clinical Impression: Pain, dental Condition: Stable Prescriptions: New hydrocodone-acetaminophen 5-325 mg tablet 1 tab PO Q6H PRN (Reason: pain) Qty: 8 0RF cephalexin 500 mg capsule 500 mg PO TID 7 Days Qty: 21 0RF ondansetron 4 mg tablet,disintegrating 4 mg PO Q6H PRN (Reason: nausea and vomiting) Qty: 14 0RF naproxen [Naprosyn] 500 mg tablet 500 mg PO BID PRN (Reason: pain) Qty: 20 0RF No Action ondansetron 4 mg tablet,disintegrating 4 mg PO Q6H PRN (Reason: nausea and vomiting) Qty: 14 0RF fluoxetine 40 mg capsule See Rx Instructions .ROUTE .COMPLEX Rx Instructions: daily 28-800 mg-mcg Tablet See Rx Instructions .ROUTE .COMPLEX Rx Instructions: daily ibuprofen 800 mg Tablet 800 mg PO Q8H Qty: 45 0RF prochlorperazine maleate [Compazine] 10 mg tablet 10 mg PO Q8H PRN (Reason: nausea and vomiting) Qty: 10 0RF Discharge Orders: Discharge ED (Routine); Ordered 09/02/24 Ordered By: Abhishek Forrest Referrals: Cecilio Hwang MD [Primary Care Provider] - Discharge Diet: Advance as tolerated Discharge Activity: Resume usual activity Patient Instructions: Toothache (ED) Print Language: Portuguese Coding Level of Care Code ED Drafting Layout Man for Jeffrey Becerril
[2024-09-02] MEDS: HYDROcodone-acetaminophen 7.5-325 mg Tablet 1 TAB PO (17:56)
[2024-09-02] MEDS: cephALEXin 500 mg Capsule PO (17:56)
[2024-09-02] MEDS: ondansetron 4 MG Tablet PO (17:56)
[2024-09-02 17:59] VITALS: BP 102/74; PULSE 88; O2SAT 96
== END 2024-09-02 18:00 | disposition home or self-care (01) ==
PROVIDERS: Emergency Provider Emergency Medicine; PCP Family Medicine
DX: K08.89 Other specified disorders of teeth and supporting structures (principal); Z98.890 Other specified postprocedural states
CPT/HCPCS: 99283; J9999; Q0162

== ENCOUNTER 2024-11-28 12:29 | Emergency (ER) | payer SELFPAY ==
[2024-11-28 12:32] VITALS: BP 115/75; PULSE 96; RESP 16; TEMP 36.8; O2SAT 98
[2024-11-28 13:10] VITALS: BP 125/81; PULSE 93; RESP 16; O2SAT 100
--- NOTE | 2024-11-28 13:25 | W.ED.FEMALGU ---
HPI - Female Genitourinary General: Chief complaint: Vaginal Bleeding Stated complaint: abnormal vaginal bleeding Time Seen by Provider: 11/28/24 13:03 Source: patient Mode of arrival: ambulatory Limitations: no limitations History of Present Illness: 34yo female presents with family for evaluation of abdominal pain, vaginal bleeding, vomiting, and concern of retained tampon in the vagina. States she went swimming several weeks ago and started her menstrual cycle, so used a tampon which she does not typically use. States that she did have a difficult time getting the tampon out. Reports that since then she has had vaginal discharge that has an unpleasant odor as well as some vaginal bleeding. States that the vaginal bleeding initially was thin, but progressed to having chunks . Patient states this is not her menstrual cycle. Reports she is swollen in the vaginal area. Also reports that her lower abdomen has been swelling over the past several days. Patient states she did have a tubal ligation 5 years ago. Previous abdominal surgeries include sections. Family also reports that patient had a tick bite a couple weeks back just prior to onset of all of her symptoms. Patient denies any chronic medical issues. She does state that she has had a retained portion of a tampon approximately 10 years ago and stated a piece of cotton was stuck within her cervix that caused her to become ill. Associated symptoms: Reports abdominal pain, nausea, vaginal bleeding and vaginal discharge Related Data Home Medications ?Medication ?Instructions ?Recorded ?Confirmed fluoxetine 20 mg capsule 60 mg PO DAILY 11/28/24 11/28/24 omeprazole 20 mg capsule,delayed 20 mg PO DAILY 11/28/24 11/28/24 release prednisone 20 mg tablet 20 mg PO BID 11/28/24 11/28/24 Allergies Allergy/AdvReac Type Severity Reaction Status Date / Time amoxicillin Allergy ALGY-Hives Verified 09/02/24 17:03 diphenhydramine (From Allergy ALGY-Hives Verified 09/02/24 17:03 Benadryl) Review of Systems Const: Denies: fever(s) or chills Card: Denies: chest pain Resp: Denies: dyspnea GI: Reports: abdominal pain, nausea, vomiting and bloating : Reports: vaginal odor, vaginal bleeding and vaginal discharge; Denies: difficulty voiding Physical Exam Const: COMMON NORMALS: no acute distress, patient oriented x3, healthy appearing and alert GENERAL APPEARANCE: cooperative ORIENTATION/CONSCIOUSNESS: Yes awake OTHER: Patient is ambulatory to the exam room unassisted. She is sitting upright on the stretcher in no acute distress and able to make position changes unassisted. She is able to provide history with assistance from family member. HENMT: COMMON NORMALS: normocephalic and atraumatic HEAD & SCALP: normocephalic and atraumatic Neck/C-Spine: COMMON NORMALS: full ROM Chest: CHEST: Yes Symmetrical chest wall rise Resp: COMMON NORMALS: normal respiratory effort and clear to auscultation bilaterally EFFORT & INSPECTION: Yes able to speak in complete sentences AUSCULTATION: clear to auscultation bilaterally Cardio: COMMON NORMALS: regular rate and regular rhythm RATE: regular rate RHYTHM: regular rhythm GI: COMMON NORMALS: Soft to palpation and non-tender PALPATION: Yes Soft to palpation, No Guarding due to palpation present (GI) and No Rigid due to palpation : COMMON NORMALS: Yes no CVA tenderness BLADDER/KIDNEY EXAM: Yes no CVA tenderness EXTERNAL FEMALE EXAM: Yes normal appearance of the urethra SPECULUM EXAM - VAGINA: No erythematous, No foreign body (no FB noted), No lesion, Yes vaginal bleeding Amount: small/minimal, No mass and No Vaginal ecchymosis OB/EXTERNAL & SPECULUM: vaginal bleeding; no foreign bodies (no FB noted) Back/Pelvis: COMMON NORMALS: no CVA tenderness Extremity: COMMON NORMALS: full ROM Neuro: COMMON NORMALS: patient oriented x3 SENSORIUM/ORIENTATION: Yes alert Psych: COMMON NORMALS: cooperative Course Reevaluation(s): Reevaluation #1: Discussed with patient preliminary result of the ultrasound indicating a left ovarian cyst. Blood work is unremarkable, no indication of tickborne illness. Wet prep with few yeast/fungal seen. Gonorrhea/chlamydia currently pending. Patient does state understanding and is ready to go home. Will proceed with discharge at this time with plan to follow-up with [facility]. Patient is agreeable with plan Time: 17:03 Vital Signs: Vital signs: Vital Signs Temperature 98.3 F 11/28/24 12:32 Pulse Rate 93 11/28/24 13:10 Respiratory Rate 16 11/28/24 13:10 Blood Pressure 122/69 11/28/24 15:00 Pulse Oximetry 100 11/28/24 15:00 Oxygen Delivery Me thod Room Air 11/28/24 12:32 MDM - Female Medical Decision Making 34yo female presents with family for evaluation of abdominal pain, vaginal bleeding, vomiting, and concern of retained tampon in the vagina. Patient also had a tick bite just prior to onset of her symptoms. Previous abdominal surgeries include section and tubal ligation. Patient is nontoxic in appearance. Vital signs are stable. Will proceed with labs for further evaluation of the abdominal pain, vomiting, possible tick illness, and possible illness related to retained foreign body in the vagina. No leukocytosis or leukopenia, white blood cell count is 10.77. Hemoglobin is in the normal range of 11.4. Platelets are also in the normal range of 258. No significant electrolyte, renal, or hepatic abnormalities noted. UPT is negative. UA with 2+ blood and 0-4 hyaline casts. No foreign body noted on speculum exam. Wet prep with few yeast/fungal and few bacteria. Gonorrhea/chlamydia not detected. Pelvic ultrasound does reveal a left ovarian cyst, otherwise unremarkable. Discussed these findings with patient and family. Patient did receive a single dose of fluconazole while in the emergency department. A referral has been placed to [facility] for further evaluation of the abnormal uterine bleeding and pelvic pain. Advised to follow-up as soon as possible. Return precautions provided. Patient states understanding and has no further questions or concerns at this time. Medical Records I reviewed the patient's medical records. Lab Data I reviewed the patient's lab results. 11/28/24 13:59 11/28/24 13:59 Radiology Impressions Pelvis Ultrasound 11/28/24 14:51 IMPRESSION: No significant pathology. Laboratory Results WBC 10.77 10^3/uL (3.29-11.43) 11/28/24 13:59 RBC 3.84 10^6/uL (3.85-5.65) L 11/28/24 13:59 Hgb 11.40 g/dL (11.27-16.99) 11/28/24 13:59 Hct 34.4 % (36-47) L 11/28/24 13:59 MCV 89.6 fl (85-98) 11/28/24 13:59 MCH 29.7 pg (27-33) 11/28/24 13:59 MCHC 33.1 g/dL (30-55) 11/28/24 13:59 RDW 15.2 % (12.1-15.1) H 11/28/24 13:59 Plt Count 258 10^3/cmm (157-399) 11/28/24 13:59 MPV 9.2 fL (7.4-10.4) 11/28/24 13:59 Neut % (Auto) 82.8 % 11/28/24 13:59 Lymph % (Auto) 12.2 % 11/28/24 13:59 Rabun % (Auto) 4.3 % 11/28/24 13:59 Eos % (Auto) 0.0 % 11/28/24 13:59 Baso % (Auto) 0.2 % 11/28/24 13:59 Neut # (Auto) 8.93 10^3/uL (1.8-7.7) H 11/28/24 13:59 Lymph # (Auto) 1.3 10^3/uL (0.8-4.8) 11/28/24 13:59 Rabun # (Auto) 0.5 10^3/uL (0.2-0.9) 11/28/24 13:59 Eos # (Auto) 0.0 10^3/uL (0.0-0.8) 11/28/24 13:59 Baso # (Auto) 0.0 10^3/uL (0.0-0.1) 11/28/24 13:59 Nucleated RBC % (auto) 0 % 11/28/24 13:59 Nucleated RBCs # 0.0 /100WBC 11/28/24 13:59 Sodium 141 mmol/L (136-145) 11/28/24 13:59 Potassium 4.1 mmol/L (3.5-5.1) 11/28/24 13:59 Chloride 106 mmol/L (98-107) 11/28/24 13:59 Carbon Dioxide 23 mmol/L (22-29) 11/28/24 13:59 Anion Gap 16.1 (5-19) 11/28/24 13:59 BUN 9 mg/dL (6-20) 11/28/24 13:59 Creatinine 0.7 mg/dL (0.5-0.9) 11/28/24 13:59 GFR Calculation 97.0 mL/min (90-130) 11/28/24 13:59 Glucose 92 mg/dL (65-115) 11/28/24 13:59 Calculated Osmolality 290 mOsm/kg (285-295) 11/28/24 13:59 Calcium 8.1 mg/dL (8.5-10.5) L 11/28/24 13:59 Total Bilirubin 0.2 mg/dL (0.15-1.2) 11/28/24 13:59 AST 14 U/L (0-32) 11/28/24 13:59 ALT 10 U/L (0-33) 11/28/24 13:59 Alkaline Phosphatase 48 U/L (35-105) 11/28/24 13:59 C-Reactive Protein 3.0 mg/L (0.0-4.9) 11/28/24 13:59 Total Protein 6.6 g/dL (6.6-8.7) 11/28/24 13:59 Albumin 4.2 g/dL (3.5-5.2) 11/28/24 13:59 Globulin 2.4 g/dL (1.3-4.6) 11/28/24 13:59 Lipase 25 U/L (13-60) 11/28/24 13:59 HCG, Qual Negative (Negative) 11/28/24 13:50 Urine Color Yellow (Yellow) 11/28/24 13:50 Urine Appearance Clear (CLEAR) 11/28/24 13:50 Urine pH 6.0 (5-7) 11/28/24 13:50 Ur Specific Meredith 1.006 (1.005-1.030) 11/28/24 13:50 Urine Protein Negative (Negative) 11/28/24 13:50 Urine Glucose (UA) Negative (Normal) 11/28/24 13:50 Urine Ketones Negative (Negative) 11/28/24 13:50 Urine Blood 2+ (Negative) A 11/28/24 13:50 Urine Nitrate Negative (Negative) 11/28/24 13:50 Urine Bilirubin Negative (Negative) 11/28/24 13:50 Urine Urobilinogen 0.2 mg/dL (Negative) 11/28/24 13:50 Ur Leukocyte Esterase Negative (Negative) 11/28/24 13:50 Urine RBC 0-2 /hpf (0-2) 11/28/24 13:50 Urine WBC 0-5 /hpf (0-5) 11/28/24 13:50 Ur Squamous Epith Cells 0-5 /hpf (0-5) 11/28/24 13:50 Amorphous Sediment Not Reportable 11/28/24 13:50 Urine Bacteria None seen /hpf (NONE) 11/28/24 13:50 Hyaline Casts 0-4 /lpf H 11/28/24 13:50 C. trachomatis (PCR) Not detected 11/28/24 14:48 C.trachomatis RNA (TMA) Cancelled 11/28/24 14:48 Chlamydia/GC Comment Cancelled 11/28/24 14:48 N. gonorrhoeae (PCR) Not detected 11/28/24 14:48 N.gonorrhoeae RNA (TMA) Cancelled 11/28/24 14:48 T. vaginalis (PCR) Not detected 11/28/24 14:48 T. vaginalis Amp RNA Cancelled 11/28/24 14:48 All radiology interpretation(s) finalized by discharge Discharge Plan Discharge Patient Disposition: Home Clinical Impression: Abnormal uterine bleeding, Pelvic pain Condition: Stable Prescriptions: No Action prednisone 20 mg Tablet 20 mg PO BID omeprazole 20 mg Capsule,Delayed Release(Dr/Ec) 20 mg PO DAILY fluoxetine 20 mg Capsule 60 mg PO DAILY Discharge Orders: Discharge ED (Routine); Ordered 11/28/24 Ordered By: Richard Jones Referrals: Cecilio Hwang MD [Primary Care Provider, Family Practice] Patient Instructions: Abnormal (Dysfunctional) Uterine Bleeding (ED), Pain Management Activity Restrictions/Additional Instructions: No significant abnormalities were noted on your blood work today One of the vaginal swabs did show some yeast. You did receive fluconazole while in the emergency department to treat the yeast present The other vaginal swab results have not returned yet. We will notify you of any positive results. Preliminary results on the ultrasound did show a left ovarian cyst, no other abnormalities. The finalization of the ultrasound is pending. There was no foreign body noted on vaginal exam. A referral has been placed to [facility] for follow-up of the vaginal bleeding and pelvic discomfort. Please follow-up as soon as possible Return to the emergency department if any rapid worsening symptoms, onset of fever associated with worsening, and as needed Print Language: Salvadorean Coding Level of Care Code ED Customer Resolution Specialist for Jeffrey Becerril
[2024-11-28 14:05] LABS: Basophils % 0.2 %; Hematocrit 34.4 % (36-47); Lymphocytes # 1.3 10^3/uL (0.8-4.8); Lymphocytes % 12.2 %; Mean Corpuscular HGB Conc 33.1 g/dL (30-55); Mean Corpuscular Hemoglobin 29.7 pg (27-33); Mean Corpuscular Volume 89.6 fl (85-98); Mean Platelet Volume 9.2 fL (7.4-10.4); Monocytes # 0.5 10^3/uL (0.2-0.9); Monocytes % 4.3 %; Neutrophils # 8.93 10^3/uL (1.8-7.7); Neutrophils % 82.8 %; Nucleated Red Blood Cells % 0 %; Platelet Count 258 10^3/cmm (157-399); Red Blood Count 3.84 10^6/uL (3.85-5.65); Red Cell Distribution Width 15.2 % (12.1-15.1); White Blood Count 10.77 10^3/uL (3.29-11.43)
[2024-11-28 14:16] LABS: Bilirubin Urine Negative (Negative); Blood Urine 2+ (Negative); Glucose Urine UA Negative (Normal); Ketones Urine Negative (Negative); Leukocyte Esterase Urine Negative (Negative); Nitrate Urine Negative (Negative); Protein Urine Negative (Negative); Specific Gravity, Urine 1.006 (1.005-1.030); Urine Appearance Clear (CLEAR); Urine Color Yellow (Yellow); Urobilinogen Urine 0.2 mg/dL (Negative)
[2024-11-28 14:21] LABS: Add Urine Microscopic? YES; Bacteria Urine None Seen /hpf; Hyaline Casts Urine 0-4 /lpf; RBC Urine 0-2 /hpf (0-2); Squamous Epithelial Cell Urine 0-5 /hpf (0-5); WBC Urine 0-5 /hpf (0-5)
[2024-11-28 14:22] LABS: HCG Qualitative Urine. Negative (Negative)
[2024-11-28 14:28] LABS: Alanine Aminotransferase 10 U/L (0-33); Albumin Level 4.2 g/dL (3.5-5.2); Alkaline Phosphatase 48 U/L (35-105); Anion Gap 16.1 (5-19); Aspartate Amino Transferase 14 U/L (0-32); Blood Urea Nitrogen 9 mg/dL (6-20); Calcium 8.1 mg/dL (8.5-10.5); Carbon Dioxide 23 mmol/L (22-29); Chloride 106 mmol/L (98-107); Creatinine Clr Calc Pharmacy 96.0614; Globulin 2.4 g/dL (1.3-4.6); Glucose 92 mg/dL (65-115); Lipase 25 U/L (13-60); Osmolality Calculated 290 mOsm/kg (285-295); Potassium 4.1 mmol/L (3.5-5.1); Sodium 141 mmol/L (136-145); Total Bilirubin 0.2 mg/dL (0.15-1.2); Total Protein 6.6 g/dL (6.6-8.7)
--- NOTE | 2024-11-28 14:51 | USR_ITS ---
PROCEDURE INFORMATION: Exam: US Pelvis Transabdominal, Complete, and US Pelvis Transvaginal, Non-obstetric Exam date and time: 11/28/2024 4:00 PM Age: 34 years old Clinical indication: Pelvic pain; Prior surgery; Surgery date: 6+ months; Surgery type: 3 c sections; Additional info: Abnormal bleeding, pain TECHNIQUE: Imaging protocol: Real-time complete transabdominal and transvaginal pelvic ultrasound (non-obstetric) with image documentation. Transvaginal imaging was used for better evaluation of the endometrium, adnexa, and/or cervix. COMPARISON: [place] [id number] 07/30/2019 9:55 AM FINDINGS: Uterus: Uterus measures 9.0 x 3.6 x 5.2 cm with the endometrial thickness of 8 mm. Right ovary/adnexa: Right ovary measures 4.0 x 3.0 x 2.7 cm in his unremarkable. Normal Doppler evaluation. Left ovary/adnexa: Left ovary measures 3.7 x 3.0 x 4.0 cm containing a 1.7 cm cyst. Normal Doppler evaluation. Intraperitoneal space: No free fluid in the pelvis. US/US pelvic complete* [id number] IMPRESSION: No significant pathology.
[2024-11-28 15:00] VITALS: BP 122/69; O2SAT 100
--- NOTE | 2024-11-28 17:09 | DCPLANNER ---
messaged [facility] for er f/u
--- NOTE | 2024-11-28 17:30 | PC.NURSE ---
pt family came to nurse's station, asked to leave; this nurse educated patient family on patient being up for discharge and needing to sign papers. charge nurse discharged patient shortly after request.
[2024-11-28 17:38] LABS: Trichomonas vaginalis (PCR) NOT DETECTED
[2024-11-28 18:02] LABS: Chlamydia Trachomatis NOT DETECTED; Neisseria Gonorrhea NOT DETECTED
== END 2024-11-28 17:33 | disposition home or self-care (01) ==
PROVIDERS: Emergency Provider Nurse Practitioner; PCP Family Medicine
DX: N93.9 Abnormal uterine and vaginal bleeding, unspecified (principal); R10.2 Pelvic and perineal pain
CPT/HCPCS: 36415; 76856; 80053; 81001; 81025; 83690; 85025; 86140; 87210; 87491; 87591; 87661; 99284